=== PATIENT | female | born 1985 | race Caucasian/White ===

== ENCOUNTER 2017-04-24 19:43 | Emergency (ER) | payer MEDICAID | END 2017-04-24 20:50 | disposition home or self-care (01) | LOC: D.ER 19:43 | DX: J20.9 Acute bronchitis, unspecified (principal); F17.200 Nicotine dependence, unspecified, uncomplicated ==

== ENCOUNTER 2018-08-03 21:55 | Emergency (ER) | payer SELFPAY ==
[~2018-08-03] VITALS: Ht 170.2 cm; Wt 84.1 kg
[2018-08-03 22:08] VITALS: Ht 170.2 cm; Wt 84.1 kg
[2018-08-03] MEDS ORDERED: TYLENOL W/CODEI1 TAB PO (22:53)
[2018-08-03] MEDS ORDERED: VIBRAMYCIN 100100 MG PO (22:53)
[2018-08-03] MEDS ORDERED: PROVENTIL HFA6.7 GM INH (22:53)
[2018-08-03 23:56] VITALS: BP 131/81
== END 2018-08-03 23:56 | disposition home or self-care (01) ==
LOC: D.ER 21:55
DX: J20.9 Acute bronchitis, unspecified (principal); F17.200 Nicotine dependence, unspecified, uncomplicated